=== PATIENT | female | born 1930 | race Caucasian/White ===

== ENCOUNTER 2018-01-25 20:06 | Emergency (ER) | payer OTHER ==
[~2018-01-25] VITALS: Ht 160 cm; Wt 61.3 kg
--- NOTE | 2018-01-25 20:06 | NUR ---
RUBÉN CASTRO. TAKEN TO BED 1
[2018-01-25 20:19] VITALS: BP 160/52
--- NOTE | 2018-01-25 20:25 | NUR ---
87 Y/O F W/C/O [facility] FALL FROM W/C-SNF SENT FOR ER EVAL-NO C/O PAIN OR TRAUMA AT THIS TIME. NO N/V/D; SKIN IS INTACT, PINK/WARM/DRY; LUNGS CLEAR BL, BREATHING UNLABORED; HR EVEN AND REGULAR, BL PERIPHERAL PULSES PRESENT; BS ACTIVE X4, NO TENDERNESS TO PALPATION, NO HEPATOSPLENOMEGALLY PALPATED, RESONANT TO PERCUSSION; PT DENIES ANY FEVER, CP, SOB, OR COUGH AT THIS TIME; PT STATES 0/10 PAIN AT THIS TIME; VSS; PATIENT POSITIONED FOR COMFORT; HOB ELEVATED; BEDRAILS UP X2; BED DOWN. HX-HTN,HEPERLIPIDEMIA,DEMENTIA,GERD,GLAUCOMA NKA
[2018-01-25] MEDS ORDERED: ESOM20EC PO (20:37)
[2018-01-25] MEDS ORDERED: CLOB0.0521 TP (20:37)
[2018-01-25] MEDS ORDERED: BRIM5SOL1 OP (20:37)
[2018-01-25] MEDS ORDERED: OLOP5DRO7 OP (20:37)
[2018-01-25] MEDS ORDERED: LORA10TA19 PO (20:37)
[2018-01-25] MEDS ORDERED: LOSA100T15 PO (20:37)
[2018-01-25] MEDS ORDERED: LEVO0.155 PO (20:37)
[2018-01-25] MEDS ORDERED: APRE30TA PO (20:37)
[2018-01-25] MEDS ORDERED: TRAM50TA1 PO (20:37)
[2018-01-25] MEDS ORDERED: KETO2CRE3 TP (20:37)
[2018-01-25] MEDS ORDERED: OSC500 PO (20:37)
[2018-01-25] MEDS ORDERED: TRAZ-343 PO (20:37)
[2018-01-25] MEDS ORDERED: AMLO10TA PO (20:37)
--- NOTE | 2018-01-25 20:44 | NUR ---
Dr. Khan evaluating patient at bedside.
--- NOTE | 2018-01-25 20:49 | NUR ---
DR. LEIGH AT BEDSIDE EVALUATING.
--- NOTE | 2018-01-25 21:15 | NUR ---
PT TAKEN TO RESTEROOM AT THIS TIME VIA WHEELCHAIR, ACCOMPANIED BY KRIS VILLALTA.
--- NOTE | 2018-01-25 21:20 | NUR ---
PTS DAUGHTER CALLED AND NOTIFED OF PT BEING UPSET. STATES SHE CAN'T COME FOR A FEW HOURS.
--- NOTE | 2018-01-25 21:30 | NUR ---
PT FOUND WITH CLOTHES REMOVED AND WET, PT REFUSES TO HAVE GOWN PUT ON AND WANTS TO HAVE CLOTHES ON. PT SWINGING ARMS AND NOT COOPERATIVE. PT CRYING STATING, "I LEFT MY CHILDREN AT HOME."
--- NOTE | 2018-01-25 22:11 | NUR ---
PT WALKING AROUND ROOM, REDIRECTED BACK TO BED, PT FOUND PUTTING CLOTHES IN TRASHCAN AND YELLING WHEN ATTEMPTING TO PUT GOWN ON.
[2018-01-25 22:29] VITALS: BP 145/66
--- NOTE | 2018-01-25 22:30 | NUR ---
Patient discharged with v/s stable. Written and verbal after care instructions given and explained. Patient alert, oriented and verbalized understanding of instructions. Wheel Chair Assisted with by caregiver. All questions addressed prior to discharge. ID band removed. Patient advised to follow up with PMD.no Rx given. Patient educated on indication of medication including possible reaction and side effects. Opportunity to ask questions provided and answered.
--- NOTE | 2018-01-25 22:31 | NUR ---
report given to charge nurse at pt snf. family took pt back to snf
== END 2018-01-25 22:30 | disposition home or self-care (01) ==
LOC: MED 20:06
DX: Z04.89 Encounter for examination and observation for other specified reasons (principal); F03.90 Unspecified dementia, unspecified severity, without behavioral disturbance, psychotic disturbance, mood disturbance, and anxiety; K21.9 Gastro-esophageal reflux disease without esophagitis; I10 Essential (primary) hypertension; E78.00 Pure hypercholesterolemia, unspecified; H40.9 Unspecified glaucoma; Z79.2 Long term (current) use of antibiotics; Z79.899 Other long term (current) drug therapy; W19.XXXA Unspecified fall, initial encounter; Y93.89 Activity, other specified; Y92.89 Other specified places as the place of occurrence of the external cause; Y99.8 Other external cause status
CPT/HCPCS: 99283

== ENCOUNTER 2018-11-22 15:30 | Inpatient (IN) | payer OTHER, MEDICAID ==
[~2018-11-22] VITALS: Ht 157.5 cm; Wt 63.5 kg
[~2018-11-22 15:30] MED LIST: AMLO10TA PO; APRE30TA PO; BRIM5SOL1 OP; CLOB0.0521 TP; ESOM20EC PO; KETO2CRE3 TP; LEVO0.155 PO; LORA10TA19 PO; LOSA100T51 PO; OLOP5DRO7 OP; OSC500 PO; TRAM50TA1 PO; TRAZ-343 PO
[2018-11-22 15:34] VITALS: BP 155/68
--- NOTE | 2018-11-22 15:37 | NUR ---
PT BIBA TO BED 03.
--- NOTE | 2018-11-22 16:16 | NUR ---
PT WAS TAKEN TO CT.
--- NOTE | 2018-11-22 17:03 | NUR ---
PT WENT TO BATH WITH STUDENT NURSE'S ASSISTANCE.
--- NOTE | 2018-11-22 17:40 | NUR ---
PT DIAPER CHANGED, PT CLEANED , RETURNED TO BED AND POSITIONED TO COMFORT.
--- NOTE | 2018-11-22 17:49 | NUR ---
XRAY WAS BEDSIDE TO DO CHEST XRAY. PT WAS IGITATED, POSSIBLE FROM DEMENTIA.
--- NOTE | 2018-11-22 18:08 | NUR ---
PT WAS DECIDED TO ADMIT TO HOSPITAL. SL ESTABLISHED ON LAC. 20G. EKG DONE BEDSIDE WELL.
[2018-11-22 19:39] LABS: BASOPHILS # (AUTO) 0.1 K/uL (0.00-0.22); BASOPHILS % (AUTO) 0.8 % (0.0-2.0); EOSINOPHILS # (AUTO) 0.1 K/uL (0-0.4); EOSINOPHILS % (AUTO) 1.4 % (0.0-4.0); HEMATOCRIT 37.5 % (36-48); HEMOGLOBIN 11.7 g/dL (12.0-16.0); LYMPHOCYTES # (AUTO) 1.2 K/uL (2.5-16.5); LYMPHOCYTES % (AUTO) 17.4 % (20.5-51.1); MEAN CORPUSCULAR HEMOGLOBIN 25 pg (27-31); MEAN CORPUSCULAR HGB CONC 31 g/dL (33-37); MEAN CORPUSCULAR VOLUME 78.5 fL (80-94); MONOCYTES # (AUTO) 0.5 K/uL (0.8-1.0); MONOCYTES % (AUTO) 6.8 % (1.7-9.3); NEUTROPHILS % (AUTO) 73.6 % (42.2-75.2); PLATELET COUNT (AUTO) 348 K/uL (140-450); RED BLOOD CELL COUNT(AUTO) 4.78 MIL/uL (4.20-5.40); RED CELL DISTRIBUTION WIDTH 18.4 % (11.6-13.7); WHITE BLOOD COUNT (AUTO) 6.7 K/uL (4.8-10.8)
[2018-11-22] MEDS ORDERED: ONDANSETRON 4 MG/2 ML VIAL IVP PRN (19:55)
[2018-11-22] MEDS ORDERED: ACETAMINOPHEN 325 MG TAB PO PRN (19:55)
[2018-11-22] MEDS ORDERED: HYDROcodone/APAP 7.5/325 MG 1 TAB PO PRN (19:55)
--- NOTE | 2018-11-22 20:00 | NUR ---
PT ADMITTED TO [facility] UNIT RM 108A. TRANSFERRED VIA MIKE PT STABLE. REPORT GIVEN TO CELIA HERNANDEZ. PT VSS. PT CARE TRANSFERRED TO RECEIVING RN.
--- NOTE | 2018-11-22 20:00 | NUR ---
RECEIVED PT FROM ER NURSE, BEREKET. PT CAME IN [facility]. PT NOT ABLE TO AMBULATE. NO S/S OF SOB NOTED ON ROOM AIR. IV SITE ON LAC, 20G, INTACT, PATENT, AND ASYMPTOMATIC. SKIN INTACT, WARM AND DRY TO TOUCH. AAOX1, BOARD UPDATED, MRSA SWAB DONE, VS CHECKED, BP 173/78 NOTED. WILL NOTIFY FALL PRECAUTION INITIATED, BED IN LOW POSITION, CALL LIGHT WITHIN REACH.
[2018-11-22 20:07] LABS: ALBUMIN 3.4 g/dL (3.4-5.0); ANION GAP 14.4 (8-16); ASPARTATE AMINOTRANSFERASE 21 U/L (15-37); CARBON DIOXIDE 26.5 mmol/L (21-32); CHLORIDE 102 mmol/L (98-107); CREATININE 0.6 mg/dL (0.6-1.3); GLUCOSE 103 mg/dL (74-106); POTASSIUM 3.9 mmol/L (3.5-5.1); SODIUM SERUM 139 mmol/L (136-145); TOTAL BILIRUBIN 0.3 mg/dL (0.0-1.0); UREA NITROGEN, BLOOD 11 mg/dL (7-18)
[2018-11-22 20:43] LABS: FREE T4 (FREE THYROXINE) 0.72 ng/dL (0.76-1.46); MAGNESIUM 1.9 mg/dL (1.8-2.4); PHOSPHORUS 3.5 mg/dL (2.5-4.9); THYROID STIMULATING HORMONE 17.63 uIU/mL (0.34-3.74)
[2018-11-22] MEDS ORDERED: hydrALAZINE 20 MG/ML VIAL IVP PRN (21:30)
--- NOTE | 2018-11-22 21:30 | NUR ---
PT PULLED IV LINE OUT. CANNULA INTACT.
[2018-11-22] MEDS: DEXT 5% / NACL 0.9% 500 ML IV SCH (21:35)
[2018-11-22] MEDS ORDERED: HALOPERIDOL IM 5 MG/ML VIAL IM ONE ×2 (21:55→23:05)
--- NOTE | 2018-11-22 21:57 | NUR ---
RESTRAINT ORDERED BY FOR PULLING IV LINE.
[2018-11-22 22:01] LABS: PROTHROMBIN TIME 9.9 secs (10.8-13.4)
[2018-11-22] MEDS: DOCUSATE SODIUM 100 MG GELCAP PO SCH (22:04)
--- NOTE | 2018-11-22 22:04 | NUR ---
GIVEN COLACE MD ORDERED. PT TOLERATED WELL.
--- NOTE | 2018-11-22 22:42 | NUR ---
STARTED NEW IV LINE ON L HAND, 24G. GOOD BLOOD RETURN. FLUSHED WELL. BP 173/78, GIVEN HYDRALAZINE MD ORDERED.
--- NOTE | 2018-11-22 23:42 | NUR ---
REASSESS BP, 133/49 NOTED, WILL CONTINUE TO MONITOR.
[2018-11-23] VITALS: BP 133/49
--- NOTE | 2018-11-23 | NUR ---
PT PULLED IV OUT, CANNULA INTACT. NO INJURY NOTED.
--- NOTE | 2018-11-23 00:15 | NUR ---
BRING PT TO RAD DEPT FOR HEAD CT.
--- NOTE | 2018-11-23 00:40 | NUR ---
BRING PT BACK FROM HEAD CT. CHARGE NURSE, SHANNAN STARTED NEW IV ON RAC, 22G. GOOD BLOOD RETURN NOTED. PT TOLERATED WELL.
--- NOTE | 2018-11-23 02:25 | NUR ---
PT AWAKE, LYING IN BED. PT CONFUSE AND SCREAMING. REORIENT PT IN HOSPITAL.
[2018-11-23] MEDS: DEXT 5% / NACL 0.9% 500 ML IV SCH (03:50)
[2018-11-23] MEDS: DEXT 5% /NACL 0.9% 1,000 ML IV SCH ×2 (04:15→16:45)
--- NOTE | 2018-11-23 04:44 | NUR ---
PT AWAKE AND CALM, LYING IN THE BED. WILL CONTINUE TO MONITOR.
--- NOTE | 2018-11-23 06:47 | NUR ---
PT AWAKE AND CALM, LYING IN THE BED. WILL CONTINUE TO MONITOR
--- NOTE | 2018-11-23 07:05 | NUR ---
RECEIVED REPORT FROM MEDICAL ASSISTING INSTRUCTOR NURSE. PATIENT IS LAYING IN BED MUMBLING AND CONFUSED. PATIENT HAS BILATERAL SOFT WRIST RESTRAINTS, AND ASPIRATION PRECAUTION. SKIN IS INTACT. PT IS DNR, NKDA. WILL CONTINUE CARE FOR THE DAY
[2018-11-23 07:44] LABS: CHOL/HDL RATIO 3.3 (1-4.5)
[2018-11-23 08:00] VITALS: BP 170/70
--- NOTE | 2018-11-23 08:29 | NUR ---
PATIENT HAS BEEN SCREENED AND CATEGORIZED HIGH NUTRITION RISK. PATIENT WILL BE SEEN WITHIN 1-2 DAYS OF ADMISSION. 11/23/18-11/24/[address]
[2018-11-23] MEDS ORDERED: CLOBETASOL PROPIONATE TP SCH (09:00)
[2018-11-23] MEDS: DOCUSATE SODIUM 100 MG GELCAP PO SCH (09:00)
[2018-11-23] MEDS ORDERED: BRIMONIDINE TARTRATE OP SCH (09:00)
--- NOTE | 2018-11-23 11:07 | NUR ---
*S.T. Bedside swallow eval completed* See report for full details. Pt presents with suspect upper esophgeal dysmotility due to c/o globus sensation after swallow of single gel capsule (Colace) taken with thin liquids. Pt repeatedly gagged and attempted to cough up pill. Pt also presents w/ mild oral difficulty managing firm solids due to incomplete mastication and anterior oral residue after swallows. Pt is at risk for aspiration. Recommend: 1) Advance to pureed diet, thin liquids. NO BREAD PRODUCTS. Straws okay. 2) 1:1 feeder w/ aspiration precautions. 3) P.O. meds crushed and mixed w/ puree such as applesauce or yogurt. 4) S.T. to follow x2/1 week to ensure tolerance of recommended diet textures as well as possibly advance diet. D/w pt results/recommendations. Pt verbalized discomfort due to globus sensation and requested that she be freed from soft wrist restraints and be taken out of bed. No family/caregiver present at time of eval. Endorsed to MARY Moreno. Time 2850-1497
--- NOTE | 2018-11-23 12:47 | NUR ---
OBTAINED TELEPHONE CONSENT FROM PATIENTS DAUGHTER IN REGARDS TO EGD PROCEDURE PER DR LEIVA. GARTH HERNANDEZ WITNESSED TELEPHONE CONSENT.
[2018-11-23] MEDS ORDERED: fentaNYL 0.05 MG/ML VIAL ONE (14:32)
[2018-11-23] MEDS ORDERED: MIDAZOLAM 2 MG/2 ML VIAL ONE (14:32)
[2018-11-23] MEDS ORDERED: diphenhydrAMINE 50 MG/ML VIAL ONE (14:32)
--- NOTE | 2018-11-23 14:35 | NUR ---
PATIENT IS SITTING UP IN BED AWAKE. NO SIGNS OF RESP DISTRESS. WILL CONTINUE TO MONITOR.
[2018-11-23 16:00] VITALS: BP 181/77
[2018-11-23] MEDS: MIDAZOLAM 2 MG/2 ML VIAL IVP ONE ×2 (16:37→17:30)
[2018-11-23] MEDS: fentaNYL 0.05 MG/ML VIAL IVP ONE ×2 (16:38→17:30)
--- NOTE | 2018-11-23 19:20 | NUR ---
RECD RESTING IN BED, AWAKE, A/OX1. RESPIRATION EVEN AND UNLABORED. IV OF D5NS AT 20 ML/HR INFUSING, RIGHT AC G22. SAFETY MEASURES ENFORCED. BED ON LOWEST POSITION, SIDE RAILS UP, BED ON ALARM. REORIENTED TO HOSPITAL SETTING. PLAN OF CARE FOR THE SHIFT DISCUSSED. NEEDS REINFORCEMENT. NO APPEARANCE OF PAIN NOTED - FLACC - 0.
[2018-11-23] MEDS ORDERED: OLANZapine 2.5 MG TAB PO SCH (20:35)
[2018-11-23] MEDS: LACTULOSE 20 GM/30 ML UDC PO SCH (20:51)
[2018-11-23] MEDS: METOPROLOL 50 MG TAB PO SCH (20:58)
--- NOTE | 2018-11-23 20:58 | NUR ---
DUE PO MEDICATIONS GIVEN, TRIED TO SPIT IT OUT. CRUSHED AND GIVEN WITH APPLE SAUCE. ABLE TO TAKE ALL MEDICATIONS.
--- NOTE | 2018-11-23 22:30 | NUR ---
SLEEPING COMFORTABLY N BED.
[2018-11-24] VITALS: BP 154/73
--- NOTE | 2018-11-24 | NUR ---
SLEEPING COMFORTABLY IN BED.
--- NOTE | 2018-11-24 04:00 | NUR ---
AWAKE BUT NO ATTEMPT TO GET OUT OF BED.
[2018-11-24] MEDS: METOCLOPRAMIDE 10 MG/10 ML SYRP UDC GT SCH ×2 (06:44→11:30)
--- NOTE | 2018-11-24 07:20 | NUR ---
ENDORSED TO AM NURSE FOR CONTINUITY OF CARE.
--- NOTE | 2018-11-24 07:28 | NUR ---
BEDSIDE REPORT RECEIVED FROM CERTIFIED OPHTHALMIC TECHNOLOGIST, PT SLEEPING QUIETLY IN NAD, RESP EVEN UNLABORED, SKIN WARM DRY COLOR WNL, POC REVIEWED, IV SITE WNL, ALL SAFETY MEASURES IN PLACE
[2018-11-24] MEDS ORDERED: LANSOPRAZOLE 30 MG CAPDR PO SCH (07:30)
[2018-11-24 08:00] VITALS: BP 136/57
[2018-11-24] MEDS ORDERED: FERROUS SULFATE 325 MG TABEC PO SCH (08:00)
[2018-11-24] MEDS: METOPROLOL 50 MG TAB PO SCH (09:00)
[2018-11-24] MEDS: LACTULOSE 20 GM/30 ML UDC PO SCH (10:36)
[2018-11-24] MEDS ORDERED: CLOT10SO5 TP (12:27)
[2018-11-24] MEDS ORDERED: LEVO0.173 PO (12:27)
[2018-11-24] MEDS ORDERED: LANS30EC68 PO (12:27)
[2018-11-24] MEDS ORDERED: FER325 PO (12:27)
--- NOTE | 2018-11-24 13:20 | NUR ---
REPORT CALLED TO JORDEN AT [facility], BELT TURNER WILL COME PICK HER UP AT 1430. LEFT MESSAGE WITH JESICA ORNELAS BY ROBERTO HERNANDEZ, AWAITING CALL BACK.
[2018-11-24] MEDS ORDERED: METO-486 PO (13:31)
--- NOTE | 2018-11-24 14:40 | NUR ---
HUMAN SERVICES ASSISTANT note 1600. HUMAN SERVICES ASSISTANT came to provide dysphagia therapy for pt; however, pt's ride is here as pt is being discharged back to her facility s/p EGD with esophageal dilation of strictures. Per RN (Daysi), pt now swallowing well without difficulty and no indicated to delay discharge to provide dysphagia therapy at this time. HUMAN SERVICES ASSISTANT to defer HUMAN SERVICES ASSISTANT intervention based on nursing request due to pt's imminent discharge at this time. If pt not discharged from hospital, then HUMAN SERVICES ASSISTANT will continue per plan of care in next 1-2 days.
--- NOTE | 2018-11-24 15:00 | NUR ---
DAUGHTER JESICA AT BEDSIDE, DC INSTRUCTIONS AND RX GIVEN AND EXPLAIINED, SHE VERBALIZED FULL UNDERSTANDING, IV DC'D, CATH TIP INTACT, BLEEDING CONTROLLED, PT NANCY WELL, PT TRANSFERED TO WHEELCHAIR WITH ASSIST, TAKEN TO [facility] BY JESICA'S PRIVATE CAR.
== END 2018-11-24 15:00 | DRG 394 ==
LOC: MED 15:30 → MTU 19:41
PROVIDERS: ADMIT General Practice; ATTEND General Practice
PROC: 0DB68ZX Excision of Stomach, Via Natural or Artificial Opening Endoscopic, Diagnostic (ICD-10-PCS; 2018-11-23)
PROC: 0D758ZZ Dilation of Esophagus, Via Natural or Artificial Opening Endoscopic (ICD-10-PCS; principal; 2018-11-23 15:00)
PROC: 0DB18ZX Excision of Upper Esophagus, Via Natural or Artificial Opening Endoscopic, Diagnostic (ICD-10-PCS; 2018-11-23 15:00)
DX: T18.128A Food in esophagus causing other injury, initial encounter (principal); K22.10 Ulcer of esophagus without bleeding; K21.0 Gastro-esophageal reflux disease with esophagitis; K22.0 Achalasia of cardia; K29.70 Gastritis, unspecified, without bleeding; K22.2 Esophageal obstruction; K44.9 Diaphragmatic hernia without obstruction or gangrene; R13.10 Dysphagia, unspecified; D64.9 Anemia, unspecified; E03.9 Hypothyroidism, unspecified; L80 Vitiligo; E78.5 Hyperlipidemia, unspecified; I10 Essential (primary) hypertension; F03.90 Unspecified dementia, unspecified severity, without behavioral disturbance, psychotic disturbance, mood disturbance, and anxiety; M81.0 Age-related osteoporosis without current pathological fracture; K21.9 Gastro-esophageal reflux disease without esophagitis; M19.90 Unspecified osteoarthritis, unspecified site; L40.9 Psoriasis, unspecified; X58.XXXA Exposure to other specified factors, initial encounter; H40.9 Unspecified glaucoma; B37.9 Candidiasis, unspecified; R73.03 Prediabetes; M47.9 Spondylosis, unspecified; Y93.89 Activity, other specified; Y99.8 Other external cause status; Y92.89 Other specified places as the place of occurrence of the external cause
CPT/HCPCS: 36415; 70450; 70490; 71045; 74018; 80053; 82150; 82607; 82728; 82746; 83036; 83540; 83690; 83735; 83880; 84100; 84439; 84443; 84484; 85025; 85045; 85610; 85730; 86677; 87081; 92610; 93005; 99285; C1727; J0360; J1200; J1630; J2250; J3010; J7042; J8597; Q0092

== ENCOUNTER 2019-02-11 22:50 | Emergency (ER) | payer OTHER, MEDICAID ==
[~2019-02-11] VITALS: Ht 149.9 cm; Wt 38.6 kg
[~2019-02-11 22:50] MED LIST changes: +CLOT10SO5 TP; -ESOM20EC PO; +FER325 PO; +LANS30EC68 PO; -LEVO0.155 PO; +LEVO0.173 PO; -LORA10TA19 PO; +METO-486 PO; -OLOP5DRO7 OP; -OSC500 PO
[2019-02-11] MEDS ORDERED: NACL 0.9% 500 ML IV SCH (22:57)
[2019-02-11 22:59] VITALS: BP 157/54
[2019-02-11] MEDS ORDERED: fentaNYL 0.05 MG/ML VIAL IVP ONE (23:00)
[2019-02-11] MEDS ORDERED: ETHYL CHLORIDE 105 ML SPR TP ONE (23:05)
--- NOTE | 2019-02-11 23:30 | NUR ---
PULLED 0.05MG/1ML FENTANYL SUBLIMAZE FROM BERTHA; WASTED 0.025MG/ 0.5ML WITH MARY CUBA.
[2019-02-11 23:44] LABS: ANION GAP 13.4 (8-16); CARBON DIOXIDE 28.9 mmol/L (21-32); CHLORIDE 101 mmol/L (98-107); CREATININE 0.6 mg/dL (0.6-1.3); GLUCOSE 103 mg/dL (74-106); POTASSIUM 4.3 mmol/L (3.5-5.1); SODIUM SERUM 139 mmol/L (136-145); UREA NITROGEN, BLOOD 15 mg/dL (7-18)
[2019-02-11 23:46] LABS: BASOPHILS % (AUTO) 0.4 % (0.0-2.0); EOSINOPHILS # (AUTO) 0.1 K/uL (0-0.4); EOSINOPHILS % (AUTO) 0.9 % (0.0-4.0); HEMATOCRIT 36.2 % (36-48); HEMOGLOBIN 11.6 g/dL (12.0-16.0); LYMPHOCYTES # (AUTO) 0.8 K/uL (2.5-16.5); MEAN CORPUSCULAR HEMOGLOBIN 26 pg (27-31); MEAN CORPUSCULAR HGB CONC 32 g/dL (33-37); MEAN CORPUSCULAR VOLUME 79.6 fL (80-94); MONOCYTES # (AUTO) 0.5 K/uL (0.8-1.0); MONOCYTES % (AUTO) 6.8 % (1.7-9.3); NEUTROPHILS # (AUTO) 5.6 K/uL (1.8-7.7); NEUTROPHILS % (AUTO) 79.9 % (42.2-75.2); PLATELET COUNT (AUTO) 352 K/uL (140-450); RED BLOOD CELL COUNT(AUTO) 4.54 MIL/uL (4.20-5.40)
[2019-02-11 23:52] LABS: ALBUMIN 3.2 g/dL (3.4-5.0); ASPARTATE AMINOTRANSFERASE 23 U/L (15-37); TOTAL BILIRUBIN 0.3 mg/dL (0.0-1.0)
--- NOTE | 2019-02-11 23:53 | NUR ---
88 Y/O FEMALE BIBA WITH REPORTS OF UNWITNESSED FALL AT [facility]. FOUND DOWN ON RIGHT HIP. STATES PAIN ALL OVER. 9/10 ACUTE PAIN IN THE BACK. ESPICALLY IN BACK AND RIBS.GCS 14 FOLLOWS COMMANDS; PEDAL EDEMA +2 PITTING; BREATHING UNLABORED; SYMMETRICAL 94% ON RA. GI:ABDOMINAL SOUNDS HEARD ON ALL FOUR QUADRANTS; UNABLE TO AMBULATE. ERMD MADE AWARE OF STATUS. SIDE RAILSX1. PLACED ON MONITOR HX: DEMENTIA, HTN, HLD, HYPOTHYROID RX:AMLODIPINE;SEE MED REC. NKDA
--- NOTE | 2019-02-11 23:53 | NUR ---
PATIENT TAKEN TO CT, IVF HELD.
[2019-02-12 00:15] LABS: PROTHROMBIN TIME 9.5 secs (10.8-13.4)
[2019-02-12 01:05] LABS: APPEARANCE,URINE SLIGHTLY HAZY (CLEAR); BILIRUBIN,URINE NEGATIVE (NEGATIVE); BLOOD, URINE NEGATIVE (NEGATIVE); COLOR,URINE YELLOW (YELLOW); LEUKOCYTE ESTERASE ,URINE 1+ (NEGATIVE); NITRITE, URINE NEGATIVE (NEGATIVE); PH,URINE 7.5 (5.0-9.0); UGLUCOSE NEGATIVE (NEGATIVE)
[2019-02-12 01:16] LABS: RBC,URINE 0-5 /HPF (0-5)
[2019-02-12] MEDS ORDERED: LEVOFLOXACIN 500 MG/D5W PREMIX 100 ML IV ONE (01:25)
--- NOTE | 2019-02-12 02:34 | NUR ---
LEFT MESSAGE WITH FAMILY. NO ANSWER.
--- NOTE | 2019-02-12 03:38 | NUR ---
PATIENT IS RESTING IN BED WITH EYES CLOSED. WILL CONTINUE TO MONITOR.
--- NOTE | 2019-02-12 04:40 | NUR ---
REPOSITIONED PATIENT TO SUPINE. CHANGED DIAPER. PATIENT IS SITTING QUIETLY IN BED. WILL CONTINUE TO MONITOR.
--- NOTE | 2019-02-12 04:58 | NUR ---
CALLED SUSAN [facility]ING. NO RESPONSE.
--- NOTE | 2019-02-12 05:21 | NUR ---
SYLVIA okay to discharge patient. Patient discharged with v/s stable. Written and verbal after care instructions given and explained. Patient verbalized understanding. Ambulance Transport with [facility]. Cosigned with MARY Logan for discharge. Patient discharged with Cipro. All questions addressed prior to discharge. Advised to follow up with PMD.
--- NOTE | 2019-02-12 05:21 | NUR ---
Note lotusone in EDM - 02/12/19 at 0528 by SONIYA DPatient discharged with v/s stable. Written and verbal after care instructions given and explained. Patient verbalized understanding. Ambulance Transport with [facility]. Cosigned with MARY Logan for discharge. Patient discharged with Cipro. All questions addressed prior to discharge. Advised to follow up with PMD.
[2019-02-12 05:25] VITALS: BP 155/59
== END 2019-02-12 05:21 ==
LOC: MED 22:50
DX: N39.0 Urinary tract infection, site not specified (principal); K21.9 Gastro-esophageal reflux disease without esophagitis; I10 Essential (primary) hypertension; F03.90 Unspecified dementia, unspecified severity, without behavioral disturbance, psychotic disturbance, mood disturbance, and anxiety; Z86.39 Personal history of other endocrine, nutritional and metabolic disease; Z98.890 Other specified postprocedural states; Z79.899 Other long term (current) drug therapy; Z79.891 Long term (current) use of opiate analgesic
CPT/HCPCS: 36415; 71045; 71250; 74176; 80053; 81001; 83605; 83880; 84484; 85025; 85610; 85730; 87040; 87086; 93005; 96365; 96375; 99284; J1956; J3010; Q0092